=== PATIENT | female | born 1980 | race Caucasian/White ===

== ENCOUNTER 2021-04-11 00:39 | Inpatient (IN) | payer SELFPAY ==
[2021-04-11] MEDS ORDERED: Ampicillin/Sulbactam 3 GM in Sodium Chloride 0.9% 100 ML IVPB SCH (01:45)
[2021-04-11] MEDS ORDERED: Ondansetron PF 4 MG/2 ML Vial IVP PRN (03:15)
[2021-04-11] MEDS ORDERED: Morphine 4 MG/ML VIAL SLOW IVP PRN (03:17)
[2021-04-11] MEDS ORDERED: Vancomycin HCl 1.5 GM in Sodium Chloride 0.9% 250 ML 300 ML IVPB SCH (03:30)
[2021-04-11] MEDS: Sodium Chloride 0.9% 1,000 ML IV SCH ×2 (04:02→18:40)
[2021-04-11 04:54] LABS: #Lymphocytes 0.4 thou/uL (1.20-3.40); #Monocytes 0.1 thou/uL (0.11-0.59); #Neutrophils 12.8 thou/uL (1.40-6.50); %Basophils 0.2 % (0.0-1.0); %Lymphocytes 3.1 % (21.0-51.0); %Monocytes 0.4 % (0.0-10.0); %Neutrophils 96.3 % (42.0-75.0); Hemoglobin 12.6 g/dL (12.0-16.0); Mean Corpuscular HGB CONC 31.6 g/dL (32.0-36.0); Mean Corpuscular Volume 88.7 fL (78.0-98.0); Mean Platelet Volume 7.3 fL (7.4-10.4); Platelet Count 297 thou/uL (130-400); RBC Distribution Width 11.7 % (11.5-14.5); Red Blood Cell (RBC) Count 4.49 mill/uL (4.20-5.40); White Blood Cell (WBC) Count 13.3 thou/uL (4.8-10.8)
[2021-04-11 05:27] VITALS: BMI 21.6
[2021-04-11 05:29] LABS: Anion Gap 18 mmol/L (10-20); BUN (Urea Nitrogen) 11 mg/dL (7.0-18.7); Calc. Creatinine Clearance 93 mL/min (70-130); Calcium 9.1 mg/dL (7.8-10.44); Carbon Dioxide 19 mmol/L (22-29); Chloride 104 mmol/L (98-107); Glucose 126 mg/dL (70-105); Potassium 3.7 mmol/L (3.5-5.1); Sodium 137 mmol/L (136-145)
[2021-04-11] MEDS ORDERED: AFRIN NASAL MIST 15 ML BOT ONE (07:18)
[2021-04-11] MEDS ORDERED: Fentanyl 100 MCG/2 ML VIAL ONE ×2 (07:18→09:54)
[2021-04-11] MEDS ORDERED: Ophthalmic Irrigation Solution 0 ML ONE (07:29)
[2021-04-11] MEDS ORDERED: Lidocaine 1% w/Epinephrine 1:100K 20 ML VIAL ONE ×2 (07:29→08:47)
[2021-04-11] MEDS ORDERED: Bacitracin Zinc Ointment 30 gm TUBE ONE (07:29)
[2021-04-11] MEDS ORDERED: Hydrocortisone 1% Cream 30 GM TUBE ONE (07:29)
[2021-04-11] MEDS ORDERED: Chlorhexidine Gluconate 15 ML UDCUP SSP ONE (07:29)
[2021-04-11] MEDS: Dextrose 5 % And 0.9 % NaCl 1,000 ML IV SCH ×2 (07:40→10:30)
[2021-04-11] MEDS ORDERED: Ketorolac Tromethamine 30 MG/ML VIAL ONE (08:26)
[2021-04-11] MEDS ORDERED: Dexamethasone 20 MG/5 ML VIAL ONE (08:26)
[2021-04-11] MEDS ORDERED: Glycopyrrolate 0.2 MG/ML 5 ML SYRINGE ONE (08:26)
[2021-04-11] MEDS ORDERED: Ondansetron PF 4 MG/2 ML Vial ONE (08:26)
[2021-04-11] MEDS ORDERED: Lidocaine 1% PF 5 ML VIAL ONE (08:26)
[2021-04-11] MEDS ORDERED: Succinylcholine 200 MG/10 ml SYRINGE FS ONE (08:26)
[2021-04-11] MEDS ORDERED: PROPOFOL 200 MG/20 ML VIAL ONE (08:26)
[2021-04-11] MEDS ORDERED: Rocuronium Bromide 10 MG/ML (10ML VIAL) ONE (08:26)
[2021-04-11] MEDS: Ampicillin/Sulbactam 3 GM in Sodium Chloride 0.9% 100 ML IVPB SCH ×3 (08:36→20:16)
[2021-04-11] MEDS ORDERED: Dexmedetomidine 200 MCG/2 ML VIAL ONE (08:50)
[2021-04-11] MEDS ORDERED: Ondansetron HCl/PF 4 MG/2 ML Vial IVP PRN (09:44)
[2021-04-11] MEDS ORDERED: Promethazine HCl 25 MG/ML VIAL SLOW IVP PRN (09:44)
[2021-04-11] MEDS ORDERED: Promethazine HCl 25 MG/ML VIAL IM PRN (09:44)
[2021-04-11] MEDS ORDERED: Ibuprofen 800 MG TAB PO PRN (10:18)
[2021-04-11] MEDS ORDERED: Ibuprofen 100 MG/5 ML UDCUP PO PRN (11:30)
[2021-04-11] MEDS ORDERED: Polyvinyl Alcohol 1.4%/Povidone 0.6% Opth Drops EA EYE PRN (11:58)
[2021-04-11] MEDS: Ibuprofen 100 MG/5 ML UDCUP PO PRN (18:47)
[2021-04-11] MEDS: Chlorhexidine Gluconate 15 ML UDCUP SSP SCH (20:16)
[2021-04-12] MEDS: Ibuprofen 100 MG/5 ML UDCUP PO PRN ×2 (00:09→08:26)
[2021-04-12] MEDS: Ampicillin/Sulbactam 3 GM in Sodium Chloride 0.9% 100 ML IVPB SCH ×4 (03:10→20:54)
[2021-04-12 05:55] LABS: #Basophils 0.1 thou/uL (0.0-0.2); #Monocytes 0.6 thou/uL (0.11-0.59); #Neutrophils 11.9 thou/uL (1.40-6.50); %Basophils 0.5 % (0.0-1.0); %Eosinophils 0.1 % (0.0-10.0); %Lymphocytes 7.1 % (21.0-51.0); %Monocytes 4.6 % (0.0-10.0); %Neutrophils 87.8 % (42.0-75.0); Hemoglobin 10.6 g/dL (12.0-16.0); Mean Corpuscular HGB CONC 33.6 g/dL (32.0-36.0); Mean Corpuscular Hemoglobin 30.1 pg (27.0-31.0); Mean Corpuscular Volume 89.6 fL (78.0-98.0); Mean Platelet Volume 7.1 fL (7.4-10.4); Platelet Count 258 thou/uL (130-400); RBC Distribution Width 11.5 % (11.5-14.5); Red Blood Cell (RBC) Count 3.53 mill/uL (4.20-5.40); White Blood Cell (WBC) Count 13.6 thou/uL (4.8-10.8)
[2021-04-12 06:15] LABS: Anion Gap 12 mmol/L (10-20); BUN (Urea Nitrogen) 12 mg/dL (7.0-18.7); Calc. Creatinine Clearance 102 mL/min (70-130); Calcium 7.9 mg/dL (7.8-10.44); Carbon Dioxide 23 mmol/L (22-29); Chloride 109 mmol/L (98-107); Glucose 104 mg/dL (70-105); Potassium 3.5 mmol/L (3.5-5.1); Sodium 140 mmol/L (136-145)
[2021-04-12] MEDS: Sodium Chloride 0.9% 1,000 ML IV SCH ×2 (06:31→20:55)
[2021-04-12] MEDS: Chlorhexidine Gluconate 15 ML UDCUP SSP SCH ×2 (08:26→20:54)
[2021-04-12] MEDS: HYDROcodone/Acetaminophen 5/325 mg Tablet PO PRN ×3 (13:00→22:28)
[2021-04-12] MEDS ORDERED: Bacitracin 1 PK TOP SCH (16:45)
[2021-04-12] MEDS: Bacitracin 1 PK TOP SCH (20:54)
[2021-04-13] MEDS: HYDROcodone/Acetaminophen 5/325 mg Tablet PO PRN ×4 (02:51→20:20)
[2021-04-13] MEDS: Ampicillin/Sulbactam 3 GM in Sodium Chloride 0.9% 100 ML IVPB SCH ×4 (02:51→20:19)
[2021-04-13 06:08] LABS: #Eosinphils 0.1 thou/uL (0.0-0.7); #Lymphocytes 1.8 thou/uL (1.20-3.40); #Monocytes 0.4 thou/uL (0.11-0.59); #Neutrophils 2.9 thou/uL (1.40-6.50); %Basophils 0.5 % (0.0-1.0); %Eosinophils 2.7 % (0.0-10.0); %Lymphocytes 34.3 % (21.0-51.0); %Monocytes 8.2 % (0.0-10.0); %Neutrophils 54.3 % (42.0-75.0); Hemoglobin 9.8 g/dL (12.0-16.0); Mean Corpuscular HGB CONC 33.4 g/dL (32.0-36.0); Mean Corpuscular Hemoglobin 30.2 pg (27.0-31.0); Mean Corpuscular Volume 90.5 fL (78.0-98.0); Mean Platelet Volume 7.2 fL (7.4-10.4); Platelet Count 232 thou/uL (130-400); RBC Distribution Width 11.6 % (11.5-14.5); Red Blood Cell (RBC) Count 3.25 mill/uL (4.20-5.40); White Blood Cell (WBC) Count 5.3 thou/uL (4.8-10.8)
[2021-04-13 06:33] LABS: Anion Gap 10 mmol/L (10-20); BUN (Urea Nitrogen) 11 mg/dL (7.0-18.7); Calc. Creatinine Clearance 94 mL/min (70-130); Calcium 7.9 mg/dL (7.8-10.44); Carbon Dioxide 27 mmol/L (22-29); Chloride 108 mmol/L (98-107); Glucose 86 mg/dL (70-105); Potassium 3.7 mmol/L (3.5-5.1); Sodium 141 mmol/L (136-145)
[2021-04-13] MEDS: Bacitracin 1 PK TOP SCH ×3 (08:20→20:20)
[2021-04-13] MEDS: Chlorhexidine Gluconate 15 ML UDCUP SSP SCH ×2 (08:20→20:19)
[2021-04-13] MEDS: Sodium Chloride 0.9% 1,000 ML IV SCH (09:21)
[2021-04-14] MEDS: Sodium Chloride 0.9% 1,000 ML IV SCH ×2 (02:14→11:46)
[2021-04-14] MEDS: Ampicillin/Sulbactam 3 GM in Sodium Chloride 0.9% 100 ML IVPB SCH ×2 (03:06→09:03)
[2021-04-14] MEDS: HYDROcodone/Acetaminophen 5/325 mg Tablet PO PRN ×2 (03:06→09:17)
[2021-04-14] MEDS: Chlorhexidine Gluconate 15 ML UDCUP SSP SCH (09:03)
[2021-04-14] MEDS: Bacitracin 1 PK TOP SCH (09:03)
[2021-04-14 11:41] VITALS: BP 104/68; TEMP 97.9
== END 2021-04-14 13:52 | disposition home or self-care (01) | DRG 137 ==
LOC: EDBD 00:39 → ERS 00:39 → SURG B 01:28
PROVIDERS: ADMIT Internal Medicine; ATTEND Internal Medicine
PROC: 0J910ZZ Drainage of Face Subcutaneous Tissue and Fascia, Open Approach (ICD-10-PCS; principal; 2021-04-11)
PROC: 0CDXXZ0 Extraction of Lower Tooth, Single, External Approach (ICD-10-PCS; 2021-04-11)
DX: K12.2 Cellulitis and abscess of mouth (principal); J39.0 Retropharyngeal and parapharyngeal abscess; F10.10 Alcohol abuse, uncomplicated; Z88.5 Allergy status to narcotic agent; Z82.61 Family history of arthritis
CPT/HCPCS: 36415; 80048; 85025; 87040; 87070; 87205; 94760; 96365; J0295; J1100; J1885; J2405; J2704; J3010; J3370; J3490; J7050